=== PATIENT | male | born 1935 | race Caucasian/White ===

== ENCOUNTER 2022-12-26 08:57 | Inpatient (IN) | payer MEDICARE, BC ==
[~2022-12-26] VITALS: Ht 182.9 cm; Wt 90.7 kg
[~2022-12-26 08:57] MED LIST: ACET-2605 PO; ASPI-605 PO; METF-495 PO; MULT-594 PO; RIVA20TA PO; ROSU10TA2 PO; SITA50TA PO; SODI45SP10 NS
[2022-12-26] MEDS ORDERED: ACETAMINOPHEN 325 MG TABLET PO ONE (09:15)
[2022-12-26] MEDS ORDERED: ACETAMINOPHEN 325 MG TABLET ONE (09:41)
[2022-12-26 09:42] LABS: BASOPHILS % (AUTO) 0.4 % (0.0-2.0); EOSINOPHILS # (AUTO) 0.1 K/uL (0.0-0.7); EOSINOPHILS % (AUTO) 0.6 % (0.0-7.0); HEMOGLOBIN 13.8 g/dL (12.5-16.3); LYMPHOCYTES # (AUTO) 1.2 K/uL (0.8-4.8); LYMPHOCYTES % (AUTO) 11.7 % (20.5-51.5); MEAN CORPUSCULAR HEMOGLOBIN 30.2 uug (23.8-33.4); MEAN CORPUSCULAR HGB CONC 33 g/dL (32.5-36.3); MEAN CORPUSCULAR VOLUME 91.8 fL (73.0-96.2); MONOCYTES # (AUTO) 1.3 K/uL (0.1-1.30); NEUTROPHILS # (AUTO) 7.7 K/uL (1.8-8.9); NEUTROPHILS % (AUTO) 74.3 % (38.5-71.5); PLATELET COUNT (AUTO) 217 K/uL (152-348); RED BLOOD CELL COUNT(AUTO) 4.57 MIL/uL (4.06-5.63); RED CELL DISTRIBUTION WIDTH 14.9 % (12.1-16.2); WHITE BLOOD COUNT (AUTO) 10.4 K/uL (3.6-10.2)
[2022-12-26 09:52] LABS: CALCIUM 9.2 mg/dL (8.5-10.1); CARBON DIOXIDE 28 mmol/L (21-32); CHLORIDE 107 mmol/L (98-107); CREATININE 1.2 mg/dL (0.6-1.3); DIFFERENTIAL COMMENT 1; GLUCOSE 112 mg/dL (74-106); POTASSIUM 3.8 mmol/L (3.5-5.1); SODIUM SERUM 143 mmol/L (136-145); UREA NITROGEN, BLOOD 20 mg/dL (7-18)
[2022-12-26 10:04] LABS: ALANINE AMINOTRANSFERASE 17 U/L (16-63); ALBUMIN 3.4 g/dL (3.4-5.0); ALKALINE PHOSPHATASE 88 U/L (50-136); ASPARTATE AMINOTRANSFERASE 16 U/L (15-37); BILIRUBIN,DIRECT 0.1 mg/dL (0.0-0.2); BILIRUBIN,TOTAL 0.5 mg/dL (0.2-1.0); TOTAL PROTEIN, SERUM 7.3 g/dL (6.4-8.2)
[2022-12-26 10:06] LABS: *BILIRUBIN,URIN NEGATIVE (NEGATIVE); *CLARITY,URINE CLEAR (CLEAR); *COLOR,URINE YELLOW (YELLOW); *KETONES,URINE NEGATIVE (NEGATIVE); *PROTEIN,URINE 2+ (NEGATIVE); *UROBILINOGEN,URINE 0.2 E.U./dl (NORMAL); LEUKOCYTE ESTERASE ,URINE NEGATIVE (NEGATIVE); NITRITE, URINE NEGATIVE (NEGATIVE); PH,URINE 5.5 (5.0-8.0); UGLUCOSE NEGATIVE (NEGATIVE)
[2022-12-26 10:13] LABS: *BLOOD, URINE TRACE (NEGATIVE)
[2022-12-26] MEDS ORDERED: ASCO500C18 PO (10:29)
[2022-12-26] MEDS ORDERED: FLUT16SP BNOSTRILS (10:29)
[2022-12-26] MEDS ORDERED: SERT100T PO (10:29)
[2022-12-26] MEDS ORDERED: CHOL500050 PO (10:29)
[2022-12-26] MEDS ORDERED: CETI10CA8 PO (10:29)
[2022-12-26] MEDS ORDERED: DILT180T11 PO (10:29)
[2022-12-26] MEDS ORDERED: METF-440 PO (10:29)
[2022-12-26] MEDS ORDERED: CYAN-28 PO (10:29)
[2022-12-26] MEDS ORDERED: MELA10CA PO (10:29)
[2022-12-26] MEDS ORDERED: ACET-2154 PO (10:29)
[2022-12-26] MEDS ORDERED: RIVA15TA PO (10:29)
[2022-12-26] MEDS ORDERED: DONE10TA44 PO (10:29)
[2022-12-26] MEDS ORDERED: MEMA10TA PO (10:29)
[2022-12-26 10:49] LABS: RBC,URINE 0-3 /HPF (0-3); WBC,URINE NONE SEEN /HPF (0-3)
[2022-12-26 10:50] LABS: BACTERIA,URINE FEW /HPF (NONE SEEN); SQUAMOUS EPITHELIAL CELL,UR FEW /HPF (NONE SEEN)
[2022-12-26 11:21] LABS: THYROID STIMULATING HORMONE 1.963 mIU/mL (0.358-3.740)
[2022-12-26] MEDS: MEMANTINE HCL 10 MG TABLET PO SCH (17:55)
[2022-12-26] MEDS: RIVAROXABAN 15 MG TABLET PO SCH (17:55)
[2022-12-26] MEDS: METFORMIN HCL 500 MG TABLET PO SCH (17:55)
[2022-12-26 18:06] VITALS: BP 171/66; TEMP 97.8; O2SAT 96
[2022-12-26] MEDS ORDERED: ACETAMINOPHEN 325 MG TABLET PO PRN (19:15)
[2022-12-26] MEDS ORDERED: REMEDY ESSENTIAL ZINC PASTE 113 GM TP PRN (19:15)
[2022-12-26] MEDS ORDERED: ONDANSETRON 4 MG/2 ML VIAL IV PRN (19:15)
[2022-12-26 20:09] VITALS: BP 175/66; TEMP 97.8; O2SAT 96
[2022-12-26] MEDS: ATORVASTATIN 40 MG TABLET PO SCH (20:36)
[2022-12-27 04:06] VITALS: BP 176/71; TEMP 97.3; O2SAT 96
[2022-12-27 06:42] LABS: BASOPHILS # (AUTO) 0.1 K/UL (0.0-0.2); BASOPHILS % (AUTO) 0.9 % (0.0-2.0); EOSINOPHILS # (AUTO) 0.3 K/uL (0.0-0.7); EOSINOPHILS % (AUTO) 3.6 % (0.0-7.0); HEMATOCRIT 40.1 % (36.7-47.1); HEMOGLOBIN 13.1 g/dL (12.5-16.3); LYMPHOCYTES # (AUTO) 1.4 K/uL (0.8-4.8); LYMPHOCYTES % (AUTO) 19.7 % (20.5-51.5); MEAN CORPUSCULAR HEMOGLOBIN 30.4 uug (23.8-33.4); MEAN CORPUSCULAR HGB CONC 33 g/dL (32.5-36.3); MEAN CORPUSCULAR VOLUME 92.8 fL (73.0-96.2); MONOCYTES # (AUTO) 0.7 K/uL (0.1-1.30); MONOCYTES % (AUTO) 9.9 % (0.0-11.0); NEUTROPHILS # (AUTO) 4.8 K/uL (1.8-8.9); NEUTROPHILS % (AUTO) 65.9 % (38.5-71.5); PLATELET COUNT (AUTO) 200 K/uL (152-348); RED BLOOD CELL COUNT(AUTO) 4.32 MIL/uL (4.06-5.63); RED CELL DISTRIBUTION WIDTH 14.9 % (12.1-16.2); WHITE BLOOD COUNT (AUTO) 7.3 K/uL (3.6-10.2)
[2022-12-27 06:59] LABS: CALCIUM 8.7 mg/dL (8.5-10.1); CARBON DIOXIDE 27 mmol/L (21-32); CHLORIDE 108 mmol/L (98-107); CREATININE 1.2 mg/dL (0.6-1.3); GLUCOSE 126 mg/dL (74-106); MAGNESIUM 1.9 mg/dL (1.8-2.4); PHOSPHOROUS 2.8 mg/dL (2.5-4.9); POTASSIUM 3.4 mmol/L (3.5-5.1); SODIUM SERUM 144 mmol/L (136-145); UREA NITROGEN, BLOOD 19 mg/dL (7-18)
[2022-12-27 07:00] LABS: DIFFERENTIAL COMMENT 1
[2022-12-27] MEDS: FLUTICASONE PROP NASAL SPRAY 16 GM BOTTLE NS SCH (08:35)
[2022-12-27] MEDS: SERTRALINE HCL 100 MG TABLET PO SCH (08:36)
[2022-12-27] MEDS: ASPIRIN EC 81 MG TABLET.DR PO SCH (08:36)
[2022-12-27] MEDS: DILTIAZEM HCL CD 180 MG CAP.SR.24H PO SCH (08:38)
[2022-12-27] MEDS: DONEPEZIL 10 MG TABLET PO SCH (08:39)
[2022-12-27] MEDS: METFORMIN HCL 500 MG TABLET PO SCH ×2 (08:39→16:18)
[2022-12-27] MEDS: MEMANTINE HCL 10 MG TABLET PO SCH ×2 (08:39→16:18)
[2022-12-27 08:40] VITALS: BP 168/64; TEMP 97.6; O2SAT 98
[2022-12-27] MEDS: hydrALAZINE HCL 25 MG TABLET PO PRN (08:58)
[2022-12-27] MEDS ORDERED: POTASSIUM CHLORIDE 20 MEQ TAB.PRT.SR PO ONE (09:45)
[2022-12-27 12:00] VITALS: BP 135/43; TEMP 97.5; O2SAT 95
[2022-12-27 16:00] VITALS: BP 135/54; TEMP 98.4; O2SAT 94
[2022-12-27] MEDS: RIVAROXABAN 15 MG TABLET PO SCH (17:09)
[2022-12-27 20:00] VITALS: BP 138/55; TEMP 98.4; O2SAT 18
[2022-12-27] MEDS: ATORVASTATIN 40 MG TABLET PO SCH (20:19)
[2022-12-28 04:00] VITALS: BP 173/71; TEMP 97.7; O2SAT 20
[2022-12-28] MEDS: FLUTICASONE PROP NASAL SPRAY 16 GM BOTTLE NS SCH (09:49)
[2022-12-28] MEDS: SERTRALINE HCL 100 MG TABLET PO SCH (09:50)
[2022-12-28] MEDS: ASPIRIN EC 81 MG TABLET.DR PO SCH (09:50)
[2022-12-28] MEDS: METFORMIN HCL 500 MG TABLET PO SCH ×2 (09:51→17:56)
[2022-12-28] MEDS: DONEPEZIL 10 MG TABLET PO SCH (09:52)
[2022-12-28] MEDS: DILTIAZEM HCL CD 180 MG CAP.SR.24H PO SCH (09:52)
[2022-12-28] MEDS: MEMANTINE HCL 10 MG TABLET PO SCH ×2 (09:52→17:57)
[2022-12-28 11:43] VITALS: BP 161/66; TEMP 97.8; O2SAT 95
[2022-12-28 16:22] VITALS: BP 152/60; TEMP 97.9; O2SAT 98
[2022-12-28] MEDS: RIVAROXABAN 15 MG TABLET PO SCH (18:02)
[2022-12-28 20:10] VITALS: BP 149/62; TEMP 98.6; O2SAT 93
[2022-12-28] MEDS: ATORVASTATIN 40 MG TABLET PO SCH (21:00)
[2022-12-29 05:00] VITALS: BP 185/72; TEMP 97.8; O2SAT 96
[2022-12-29] MEDS: hydrALAZINE HCL 25 MG TABLET PO PRN (05:13)
[2022-12-29] MEDS: ASPIRIN EC 81 MG TABLET.DR PO SCH (08:13)
[2022-12-29] MEDS: MEMANTINE HCL 10 MG TABLET PO SCH (08:13)
[2022-12-29] MEDS: DILTIAZEM HCL CD 180 MG CAP.SR.24H PO SCH (08:13)
[2022-12-29] MEDS: SERTRALINE HCL 100 MG TABLET PO SCH (08:13)
[2022-12-29] MEDS: DONEPEZIL 10 MG TABLET PO SCH (08:13)
[2022-12-29] MEDS: METFORMIN HCL 500 MG TABLET PO SCH (08:13)
[2022-12-29] MEDS: FLUTICASONE PROP NASAL SPRAY 16 GM BOTTLE NS SCH (08:35)
[2022-12-29 11:30] VITALS: BP 154/63; TEMP 98.5; O2SAT 95
== END 2022-12-29 15:40 | DRG 641 ==
LOC: ER 08:57 → MEDSURG3 16:51
PROVIDERS: ADMIT Nurse Practitioner Acute Care; ATTEND Nurse Practitioner Acute Care
PROC: 2W3DX1Z Immobilization of Left Lower Arm using Splint (ICD-10-PCS; principal; 2022-12-26)
DX: R62.7 Adult failure to thrive (principal); D68.59 Other primary thrombophilia; I48.20 Chronic atrial fibrillation, unspecified; S62.617A Displaced fracture of proximal phalanx of left little finger, initial encounter for closed fracture; W06.XXXA Fall from bed, initial encounter; Y92.092 Bedroom in other non-institutional residence as the place of occurrence of the external cause; Z79.01 Long term (current) use of anticoagulants; M19.042 Primary osteoarthritis, left hand; R29.6 Repeated falls; R53.1 Weakness; I25.10 Atherosclerotic heart disease of native coronary artery without angina pectoris; I10 Essential (primary) hypertension; E78.5 Hyperlipidemia, unspecified; E11.9 Type 2 diabetes mellitus without complications; G31.84 Mild cognitive impairment of uncertain or unknown etiology; F32.A Depression, unspecified; M50.321 Other cervical disc degeneration at C4-C5 level; M48.02 Spinal stenosis, cervical region; S00.81XD Abrasion of other part of head, subsequent encounter; W19.XXXD Unspecified fall, subsequent encounter; Z79.84 Long term (current) use of oral hypoglycemic drugs; Z79.899 Other long term (current) drug therapy; Z88.0 Allergy status to penicillin
CPT/HCPCS: 36415; 70450; 71045; 72125; 73130; 83735; 84100; 84443; 84484; 85025; 93005; G0378; J3535